=== PATIENT | female | born 1980 ===

== ENCOUNTER 2017-10-03 14:05 | Emergency (ER) | payer MEDICAID ==
[2017-10-03 15:05] VITALS: BMI 34.4
[2017-10-03] MEDS ORDERED: Lactated Ringer's 1,000 ML IV SCH (15:15)
[2017-10-03 15:47] LABS: BASO % 0.4 % (0.0-2.0); EOS # 0.1 K/uL (0.0-0.7); EOS % 0.6 % (0.0-4.0); HEMOGLOBIN 10.5 g/dL (12.0-16.0); LYMPH # 1.6 K/uL (1.0-4.3); LYMPH % 18.9 % (20.0-40.0); MEAN CELL VOLUME 82.4 fl (81.0-99.0); MEAN PLATELET VOLUME 9.1 fl (7.2-11.7); MONO # 0.6 K/uL (0.0-0.8); MONO % 6.7 % (0.0-10.0); NEUT # 6.4 K/uL (1.8-7.0); NEUT % 73.4 % (50.0-75.0); NRBC % 0.1 % (0.0-0.0); RBC 3.74 Mil/uL (3.80-5.20); RED CELL DISTRIBUTION WIDTH 15.2 % (11.5-14.5); WHITE BLOOD COUNT 8.7 K/uL (4.8-10.8)
[2017-10-03 15:57] LABS: ALB/GLOB RATIO 1.1 (1.0-2.1); ALBUMIN 3.5 g/dL (3.5-5.0); ALT/SGPT 39 U/L (9-52); AST/SGOT 24 U/L (14-36); BLOOD UREA NITROGEN 9 mg/dl (7-17); CALCIUM 9.2 mg/dL (8.4-10.2); GFR AFRICAN-AMERICAN > 60; GFR NON-AFRICAN AMERICAN > 60
[2017-10-03 16:05] LABS: SQUAMOUS EPITHIAL 2 /hpf (0-5); URINE BACTERIA RARE (<OCC); URINE BILIRUBIN NEGATIVE (NEGATIVE); URINE BLOOD NEGATIVE (NEGATIVE); URINE CLARITY SLIGHTY-CLOUDY (Clear); URINE COLOR AMBER (YELLOW); URINE GLUCOSE (UA) NEG (Normal); URINE LEUKOCYTE ESTERASE TRACE Leu/uL (Negative); URINE PROTEIN 30 mg/dL (NEGATIVE)
[2017-10-03 16:38] LABS: SPECIMEN COMMENT CLOUDY
--- NOTE | 2017-10-03 18:44 | US ---
PROCEDURE: Biophysical profile HISTORY: decreased movement and contractions COMPARISON: 06/14/2017 pelvic ultrasound documenting twin intrauterine gestations.. TECHNIQUE: Standard protocol for this study/examination. FINDINGS: Baby A: FINDINGS: Biophysical profile score 8/8 Based on the followin. breathing movements: 2/2 2. Gross body movement: 2/2 3. tone: 2/2 4. Qualitative amniotic fluid index: 2/2 Breech presentation. Cardiac rate 136 beats per minute. Baby B: FINDINGS: Biophysical profile score 8/8 Based on the followin. breathing movements: 2/2 2. Gross body movement: 2/2 3. tone: 2/2 4. Qualitative amniotic fluid index: 2/2 Breech presentation. Cardiac rate 1 5 3 beats per minute IMPRESSION: Biophysical profile score 8/8 for baby A. Biophysical profile score 8/8 for baby B.
[2017-10-03 23:33] VITALS: BP 103/55; PULSE 85
--- NOTE | 2017-10-04 09:50 | OBHP ---
Datetime: 10/03/2017 18:41 IP Adm Impression: , intrauterine ; No Active Labor; Intact Membranes IP Admit Plan: Observation/Evaluation; Discharge home Admit Comment, IP Provider: 37-year-old 003 at 29 weeks gestational age, mono/di twin gestatio n, gestational diabetic. Patient presents to OB ED complaining of decreased movement. Patient d enies contractions, vaginal bleeding, leakage of fluids. records reviewed. While at OB ED, p atient found to have irritability and some contractions on tocometer. Patient reports not feeling any contractions. Past medical history gestational diabetes Past surgical history denies Medications vitamins, metformin No known drug allergies Obstetrical history full-term 3 Social history denies tobacco, drugs, alcohol Physical exam: Refer to physical exam findings fibronectin negative BPP 8 out of 8 for both twins, cervical length 3.8 cm Assessment: 29 weeks gestational age mono/di twin gestation. Both maternal well-being and well-being lorna ssuring at this time. Plan: Patient discharged home with labor precautions. All patient questions answered. Pelvic Type - PN: Adequate Extremities - PN: Normal Abdomen - PN: Normal Back - PN: Normal Breast - PN: Normal Lungs - PN: Normal Heart - PN: Normal Thyroid - PN: Normal Neurologic - PN: Normal HEENT - PN: Normal General - PN: Normal FHR - Baseline A Provider: A130s B150s Contraction Comments Provider: irregular mild not felt by patient Comments, ACOG Physical Exam: Cervix: Long, closed, posterior No blood, fluid, discharge EGA AdmitDate IP: 29.0 Vital Signs Provider: Reviewed; Within Normal Limits IP Chief Complaint: Decreased movement NICHD Variability Prov Fetus A: Moderate 6-25bpm NICHD Accel Fetus A IP Provider: [id number] FHR Category Provider Fetus A: Category I NICHD Decel Fetus A IP Provider: None Dilatation, Provider: 0 Effacement, Provider: 0 Station, Provider: -4 Genitourinary Exam: Normal DTRs - PN: Normal
== END 2017-10-03 19:25 | disposition home or self-care (01) ==
LOC: H.EROB2 14:05
DX: O30.003 Twin pregnancy, unspecified number of placenta and unspecified number of amniotic sacs, third trimester (principal); O36.8130 Decreased fetal movements, third trimester, not applicable or unspecified; Z3A.29 29 weeks gestation of pregnancy; O24.419 Gestational diabetes mellitus in pregnancy, unspecified control
CPT/HCPCS: 76818; 80053; 81003; 82731; 85025; 86850; 86900; 99283; J7120

== ENCOUNTER 2017-10-27 11:24 | Emergency (ER) | payer MEDICAID ==
[2017-10-27] MEDS ORDERED: Phenaphthazine-PH Test Paper VI ONE (12:01)
[2017-10-27] MEDS ORDERED: Betamethasone Soluspan 30 mg/5mL Inj Susp IM ONE (12:30)
[2017-10-27] MEDS ORDERED: Lactated Ringer's 1,000 ML IV SCH (12:45)
[2017-10-27] MEDS ORDERED: Penicillin G 5 Million Unit Vial IVPB ONE (12:47)
[2017-10-27 12:56] LABS: BASO % 0.4 % (0.0-2.0); EOS # 0.1 K/uL (0.0-0.7); EOS % 1.1 % (0.0-4.0); HEMOGLOBIN 8.9 g/dL (12.0-16.0); LYMPH # 1.4 K/uL (1.0-4.3); LYMPH % 18.1 % (20.0-40.0); MEAN CELL VOLUME 79.4 fl (81.0-99.0); MEAN CORPUSCULAR HEMOGLOBIN 26.6 pg (27.0-31.0); MEAN CORPUSCULAR HGB CONC 33.5 g/dL (33.0-37.0); MONO # 0.5 K/uL (0.0-0.8); MONO % 6.1 % (0.0-10.0); NEUT # 5.6 K/uL (1.8-7.0); NEUT % 74.3 % (50.0-75.0); NRBC % 0.4 % (0.0-0.0); RBC 3.36 Mil/uL (3.80-5.20); RED CELL DISTRIBUTION WIDTH 16.9 % (11.5-14.5); WHITE BLOOD COUNT 7.5 K/uL (4.8-10.8)
[2017-10-27] MEDS ORDERED: Magnesium Sulfate 4 gm/100 ml 4 GM/100 ML BAG IVPB ONE ×2 (12:58→13:13)
[2017-10-27] MEDS ORDERED: Magnesium Sul 40GM/1L SW 40 GM/1,000 ML ML IV ONE (13:03)
[2017-10-27] MEDS ORDERED: Magnesium Sul 40GM/1L SW 1,000 ML IV ONE (15:38)
--- NOTE | 2017-10-27 16:06 | OBHP ---
Datetime: 10/27/2017 12:13 IP Adm Impression: , intrauterine ; Ruptured Membranes IP Adm Impression Other: Twin at 31+ wks IP Admit Plan: Observation/Evaluation IP Admit Plan Other: Transfer to [facility] Admit Comment, IP Provider: 37-year-old at 32.3 weeks gestational age, mono/di twin gestati on, gestational diabetic. Patient presents to [facility] complaining of gush of fluid this morning at 9 am. Patient denies contractions, vaginal bleeding. +FM. records reviewed. Past medical history gestational diabetes Past surgical history denies Medications vitamins, metformin No known drug allergies Obstetrical history full-term 3 Social history denies tobacco, drugs, alcohol Physical exam: Refer to physical exam findings Speculum: + pooling, Nitrazine positive. BPP 8 out of 8 for both twins, cervical length 3.8 cm A/P: 37 yo patient IUP 32.3 weeks mono/di twin gestation presents due to SPROM. - IV fluids - Celestone 12 mg IM once. - Penicillin 5 millions IV once. - Mg 4g IV Loading dose - Neonatology Dr Quinones called and informed. - Transfer to [facility] for further management Pt was seen and examined with Dr Nunes. Jose A PGY 1. Attending Note: Pt was seen and evaluated with the resident and I agree with the above. Pelvic Type - PN: Adequate Extremities - PN: Normal Abdomen - PN: Normal Back - PN: Not Done Breast - PN: Not Done Lungs - PN: Normal Heart - PN: Normal Thyroid - PN: Not Done Neurologic - PN: Normal HEENT - PN: Normal General - PN: Normal FHR - Baseline A Provider: 140 Amniotic Fluid Color, Provider: Clear Membranes, Provider: Ruptured Contraction Comments Provider: e/ 5-10 min Pool Provider: Positive Nitrazine Provider: Positive EGA AdmitDate IP: 32.3 Vital Signs Provider: Reviewed; Within Normal Limits IP Chief Complaint: Suspected ruptured membranes NICHD Variability Prov Fetus A: Moderate 6-25bpm NICHD Accel Fetus A IP Provider: [id number] FHR Category Provider Fetus A: Category I NICHD Decel Fetus A IP Provider: None Dilatation, Provider: FT Effacement, Provider: 0 Station, Provider: 0 Genitourinary Exam: Normal DTRs - PN: Normal
[2017-10-27 21:25] VITALS: BP 111/52; PULSE 75; RESP 18; TEMP 98.2; O2SAT 98
== END 2017-10-27 15:40 | disposition short-term general hospital (02) ==
LOC: H.EROB2 11:24
DX: O34.60 Maternal care for abnormality of vagina, unspecified trimester (principal); N89.8 Other specified noninflammatory disorders of vagina; O30.003 Twin pregnancy, unspecified number of placenta and unspecified number of amniotic sacs, third trimester; Z3A.32 32 weeks gestation of pregnancy; O47.03 False labor before 37 completed weeks of gestation, third trimester
CPT/HCPCS: 82948; 85025; 86850; 86900; 96372; 99283; J0702; J2540; J3475; J7120